=== PATIENT | male | born 1945 | race Caucasian/White ===

== ENCOUNTER → 2016-06-05 | Outpatient (CLI) | payer OTHER ==
[2016-06-05 10:12] LABS: ALANINE AMINOTRANSFERASE 34 U/L (21-72); ALKALINE PHOSPHATASE 81 U/L (38-126); ANION GAP 15 (5-19); ASPARTATE AMINO TRANSFERASE 40 U/L (17-59); BILIRUBIN,TOTAL 0.5 mg/dL (0.2-1.3); BLOOD UREA NITROGEN 24 mg/dL (7-20); CARBON DIOXIDE 26 mmol/L (22-30); CHLORIDE 103 mmol/L (98-107); CHOLESTEROL 127.44 mg/dL (0-200); CREATININE RESULT 1.76 mg/dL (0.52-1.25); Direct HDL 57 mg/dL (>40); GLUCOSE 140 mg/dL (75-110); SODIUM 143.6 mmol/L (137-145); TOTAL PROTEIN 6.8 g/dL (6.3-8.2); TRIGLYCERIDES 137 mg/dL (<150)
[2016-06-05 10:24] LABS: DIRECT LDL 43 mg/dL (<100)
== END ==
LOC: OD 08:55
PROVIDERS: ATTEND Internal Medicine Endocrinology, Diabetes & Metabolism
DX: E11.49 Type 2 diabetes mellitus with other diabetic neurological complication (principal)
CPT/HCPCS: 36415; 80053; 80061

== ENCOUNTER → 2018-04-14 | Outpatient (CLI) | payer MEDICARE ==
--- NOTE | 2018-04-14 11:52 | RADIOLOGY REPORT (SQ) ---
EXAM DESCRIPTION: CHEST PA/LATERAL COMPLETED DATE/TIME: 04/14/2018 11:24 am REASON FOR STUDY: COUGH,ACUTE BRONCHITIS COMPARISON: 01/02/2016 EXAM PARAMETERS: NUMBER OF VIEWS: two views TECHNIQUE: Digital Frontal and Lateral radiographic views of the chest acquired. RADIATION DOSE: NA LIMITATIONS: none FINDINGS: LUNGS AND PLEURA: Minimal bibasilar airspace disease is present, atelectasis favored over pneumonia. No fluffy alveolar infiltrates worrisome for pulmonary edema. No pleural effusion. No pneumothorax. MEDIASTINUM AND HILAR STRUCTURES: No masses or contour abnormalities. HEART AND VASCULAR STRUCTURES: Heart normal size. No evidence for failure. BONES: No acute findings. HARDWARE: None in the chest. OTHER: No other significant finding. IMPRESSION: Minimal bibasilar airspace disease is present atelectasis versus pneumonia TECHNICAL DOCUMENTATION: JOB ID: [id number] [employer]- All Rights Reserved Reading location - IP/workstation name: [email or web address]
[2018-04-14 12:05] LABS: ABSOLUTE LYMPHOCYTES (AUTO) 0.9 10^3/uL (0.5-4.7); ABSOLUTE MONOCYTES (AUTO) 0.7 10^3/uL (0.1-1.4); ABSOLUTE NEUT (AUTO) 3.8 10^3/uL (1.7-8.2); BASOPHILS % (AUTO) 0.2 % (0-2); EOSINOPHILS % (AUTO) 0.1 % (0-6); HEMATOCRIT 43.2 % (37.9-51.0); LYMPHOCYTES % (AUTO) 16.8 % (13-45); MEAN CORPUSCULAR HEMOGLOBIN 32.5 pg (27.0-33.4); MEAN CORPUSCULAR HGB CONC 34.7 g/dL (32.0-36.0); MEAN CORPUSCULAR VOLUME 94 fl (80-97); MONOCYTES % (AUTO) 13.3 % (3-13); PLATELET COUNT 112 10^3/uL (150-450); RED BLOOD COUNT 4.61 10^6/uL (4.35-5.55); RED CELL DISTRIBUTION WIDTH 13.6 % (11.5-14.0); SEGMENTED NEUTROPHILS % (AUTO) 69.6 % (42-78); TOTAL CELLS COUNTED % (AUTO) 100 %; WHITE BLOOD COUNT 5.5 10^3/uL (4.0-10.5)
[2018-04-14 12:23] LABS: ALBUMIN 4.4 g/dL (3.5-5.0); ANION GAP 18 (5-19); BLOOD UREA NITROGEN 17 mg/dL (7-20); CALCIUM 9.5 mg/dL (8.4-10.2); CARBON DIOXIDE 24 mmol/L (22-30); CHLORIDE 98 mmol/L (98-107); GLUCOSE 124 mg/dL (75-110); POTASSIUM 4.6 mmol/L (3.6-5.0); SODIUM 139.6 mmol/L (137-145); TOTAL PROTEIN 7.2 g/dL (6.3-8.2)
[2018-04-14 12:24] LABS: ALANINE AMINOTRANSFERASE 43 U/L (21-72); ALKALINE PHOSPHATASE 98 U/L (38-126); ASPARTATE AMINO TRANSFERASE 65 U/L (17-59); BILIRUBIN,DIRECT 0.3 mg/dL (0.0-0.4); BILIRUBIN,TOTAL 0.8 mg/dL (0.2-1.3)
== END ==
LOC: OD 11:08
PROVIDERS: ATTEND Internal Medicine
DX: J20.9 Acute bronchitis, unspecified (principal); R05 Cough
CPT/HCPCS: 36415; 71046; 80053; 85025

== ENCOUNTER → 2019-11-01 | Outpatient (CLI) | payer MEDICARE ==
[2019-11-01 11:30] VITALS: BP 135/87
--- NOTE | 2019-11-01 11:30 | ER RDC ASSESSMENT REPORT ---
Intake - In the Last 14 days Have you traveled outside [place]?: No Have you been in close contact with someone CONFIRMED: No Worked in Healthcare?: No - Symptoms Subjective Fever([place] feverish): No Chills: No Muscule Aches: No Runny Nose: Yes Sore Throat: Yes Cough (New or worsening chronic cough): Yes Shortness of breath: Yes Nausea or Vomiting: No Headache: No Abdominal Pain: No Diarrhea(3 or more loose stools in last 24 hours): No - Do you have any of the following Chronic lung disease: Asthma or emphysema or COPD: Yes Chronic Lung Disease Comment: History of asthma as a child and seasonal allergies Cystic Fibrosis: No Diabetes: Yes Diabetes Comment: DM type II High Blood Pressure: Yes Cardiovascular Disease: Yes Chronic Kidney Disease: No Chronic Liver Disease: No Chronic blood disorder like Sickle Cell Disease: No Weak immune system due to disease or medication: No Neurologic condition that limits movement: No Developmental delay - Moderate to Severe: No Recent (within past 2 weeks) or current : No Morbid Obesity (>100 pounds over ideal weight): No Obesity Comment: Height 6 feet 0 inches weight 185 pounds Other Comment: History of stents x7 - Objective Temperature: 96.7 F Pulse Rate: 87 Respiratory Rate: 20 Blood Pressure: 135/87 O2 Sat by Pulse Oximetry: 97 Objective: Given above, testing performed: If Testing Performed: Test Specimen Type Sent to General - General Information source: Patient Notes: Patient here at [facility] for COVID testing. Started feeling symptoms 3 weeks ago of a sore throat has had a runny nose cough for a long time states on occasion will have shortness of breath with exertion but reports yesterday walked 5 miles has been feeling like he has fuzz balls in his lungs again has had that for several months and denies muscle aches but reports having occasional cramps in the left leg. Sees Dr. Hatch and has an appointment scheduled in the morning. - Related Data Allergies/Adverse Reactions: No Known Allergies Allergy (Unverified 12/13/13 13:20) Past Medical History - General Information source: Patient - Social History Smoking Status: Former Smoker - Quit years ago - Past Medical History Cardiac Medical History: Reports: Hx Hypertension - CONTROLLED Denies: Hx Heart Attack Pulmonary Medical History: Reports: Hx Asthma - CHILDHOOD Neurological Medical History: Denies: Hx Cerebrovascular Accident, Hx Seizures Endocrine Medical History: Reports: Hx Diabetes Mellitus Type 2 GI Medical History: Reports: Hx Gastroesophageal Reflux Disease. Denies: Hx He patitis, Hx Hiatal Hernia, Hx Ulcer Psychiatric Medical History: Reports: Hx Anxiety Infectious Medical History: Denies: Hx Hepatitis Past Surgical History: Reports: Hx Cardiac Catheterization - 3 STENTS. Denies: Hx Open Heart Surgery, Hx Pacemaker Physical Exam - General General appearance: Appears well, Alert In distress: None Notes: PHYSICAL EXAMINATION: GENERAL: Well-appearing and in no acute distress. HEAD: Atraumatic, normocephalic. EYES: sclera anicteric, conjunctiva are normal. ENT: nares patent. Moist mucous membranes. NECK: Normal range of motion, supple without lymphadenopathy LUNGS: CTAB and equal. No wheezes rales or rhonchi. Resp even and unlabored. Lung sounds clear. HEART: Regular rate and rhythm without murmurs ABDOMEN: Soft, nontender, normal bowel sounds, no guarding. EXTREMITIES: No cyanosis. NEUROLOGICAL: Normal speech. PSYCH: Normal mood, normal affect. SKIN: Warm, Dry, normal turgor, Diagnostic Results Laboratory Results: Patient informed of negative rapid strep and negative rapid flu results. pending strep culture pending COVID testing results. Patient provided instructions regarding COVID to include: As a person under investigation for Covid 19, the [place] department of Health and Human Services, division of public health advises you to adhere to the following guidance until your test results are reported to you. If your test result is positive, you will receive additional information from your provider and your local health department at that time. Remain at home until you are cleared by the health provider or public health authorities. Keep a log of visitors to your home, notify any visitors to your home of your isolation status. If you plan to move to a new address or leave the [facility], notify the local health department in your County. Call your doctor or seek care if you have an urgent medical need. Before seeking medical care, call ahead to get instructions from the provider before arriving at the medical office clinic or hospital. Notify them that you are being tested for the virus that causes Covid 19 so that arrangements can be made, as necessary, to prevent transmission to others in the healthcare setting. Next, notify the local health department in your county. If a medical emergency arises and you need to call 911, inform the first responders that you are being tested for the virus that causes Covid 19. Next, notify the local health department in your county. Patient Education/Counseling Counseling/Education: Patient presents with upper respiratory symptoms worrisome for possible Covid 19. Patient does not have emergency worring symptoms such as difficulty breathing, shortness of breath, chest pain, pressure, confusion or cyanosis. Patient appears suitable for discharge. Patient instructed to follow up with PCP. Dr. Hatch. To ED for persistent or worsening symptoms. Patient's vital signs are stable and patient is nontoxic in appearance. Good return precautions have been discussed with patient, patient verbalized understanding and is agreeable with discharge plan of care at this time. RDC Discharge - Discharge Clinical Impression: COVID - 19 SCREENING Upper respiratory infection Qualifiers: URI type: unspecified URI Qualified Code(s): J06.9 - Acute upper respiratory infection, unspecified Condition: Stable Disposition: Home; Selfcare
[2019-11-01 12:10] LABS: A TYPE INFLUENZA AG NEGATIVE (NEGATIVE); B INFLUENZA AG NEGATIVE (NEGATIVE)
== END ==
LOC: RDC 10:42
PROVIDERS: ATTEND Nurse Practitioner Family
DX: Z20.828 Contact with and (suspected) exposure to other viral communicable diseases (principal)
CPT/HCPCS: 36415; 87070; 87880; 87804; U0003; C9803; 87635; 99201; 99211

== ENCOUNTER → 2019-12-16 | Outpatient (CLI) | payer MEDICARE, BC ==
--- NOTE | 2019-12-16 09:54 | RADIOLOGY REPORT (SQ) ---
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 Images reviewed wi th bone, brain and subdural windows. Additional sagittal and coronal reconstructions were generated. Images stored on PACS. All CT scanners at this facility use dose modulation, iterative reconstruction, and/or weight based d osing when appropriate to reduce radiation dose to as low as reasonably achievable (ALARA). [facility]: Dose Right [facility]: CareDose [facility]: Dose Right [facility]: Teradose 4D [facility]: [employer] RADIATION DOSE: mGy. LIMITATIONS: None. FINDINGS: VENTRICLES: Normal size and contour. CEREBRUM: No masses. No hemorrhage. No midline shift. No evidence for acute infarction. Normal gra y/white matter differentiation. No areas of low density in the white matter. CEREBELLUM: No masses. No hemorrhage. No alteration of density. No evidence for acute infarction. EXTRAAXIAL SPACES: No fluid collections. No masses. ORBITS AND GLOBE: No intra- or extraconal masses. Normal contour of globe without masses. CALVARIUM: No fracture. PARANASAL SINUSES: No fluid or mucosal thickening. SOFT TISSUES: No mass or hematoma. OTHER: No other significant finding. IMPRESSION: NORMAL BRAIN CT WITHOUT CONTRAST. EVIDENCE OF ACUTE STROKE: NO. COMMENT: Quality ID # [id number]: Final reports with documentation of one or more dose reduction techniques (e.g., Automated exposure control, adjustment of the mA and/or kV according to patient size, use of iterative reconstruction technique) TECHNICAL DOCUMENTATION: JOB ID: [id number] 2010 [employer]- All Rights Reserved Reading location - IP/workstation name: [email or web address]
== END ==
LOC: RAD 09:29
PROVIDERS: ATTEND Internal Medicine
DX: G45.9 Transient cerebral ischemic attack, unspecified (principal); M21.372 Foot drop, left foot
CPT/HCPCS: 70450

== ENCOUNTER → 2019-12-16 | Outpatient (CLI) | payer MEDICARE, BC ==
[2019-12-16 11:19] LABS: ABSOLUTE EOSINOPHILS # (AUTO) 0.1 10^3/uL (0.0-0.6); ABSOLUTE LYMPHOCYTES (AUTO) 1.1 10^3/uL (0.5-4.7); ABSOLUTE MONOCYTES (AUTO) 0.5 10^3/uL (0.1-1.4); ABSOLUTE NEUT (AUTO) 2.5 10^3/uL (1.7-8.2); BASOPHILS % (AUTO) 0.5 % (0-2); EOSINOPHILS % (AUTO) 2.3 % (0-6); HEMATOCRIT 45.1 % (37.9-51.0); HEMOGLOBIN 15.2 g/dL (13.5-17.0); LYMPHOCYTES % (AUTO) 25.4 % (13-45); MEAN CORPUSCULAR HEMOGLOBIN 32.4 pg (27.0-33.4); MEAN CORPUSCULAR HGB CONC 33.7 g/dL (32.0-36.0); MEAN CORPUSCULAR VOLUME 96 fl (80-97); MONOCYTES % (AUTO) 12.3 % (3-13); PLATELET COUNT 110 10^3/uL (150-450); RED BLOOD COUNT 4.69 10^6/uL (4.35-5.55); RED CELL DISTRIBUTION WIDTH 13.3 % (11.5-14.0); SEGMENTED NEUTROPHILS % (AUTO) 59.5 % (42-78); TOTAL CELLS COUNTED % (AUTO) 100 %; WHITE BLOOD COUNT 4.2 10^3/uL (4.0-10.5)
[2019-12-16 11:52] LABS: ALBUMIN 4.4 g/dL (3.5-5.0); ALKALINE PHOSPHATASE 95 U/L (38-126); ANION GAP 10 (5-19); ASPARTATE AMINO TRANSFERASE 50 U/L (17-59); BILIRUBIN,TOTAL 0.7 mg/dL (0.2-1.3); BLOOD UREA NITROGEN 17 mg/dL (7-20); CALCIUM 9.9 mg/dL (8.4-10.2); CARBON DIOXIDE 27 mmol/L (22-30); CHLORIDE 104 mmol/L (98-107); GLUCOSE 130 mg/dL (75-110); POTASSIUM 4.6 mmol/L (3.6-5.0); TOTAL PROTEIN 7.1 g/dL (6.3-8.2)
== END ==
LOC: OD 10:24
PROVIDERS: ATTEND Internal Medicine
DX: G45.9 Transient cerebral ischemic attack, unspecified (principal); E11.9 Type 2 diabetes mellitus without complications; I10 Essential (primary) hypertension
CPT/HCPCS: 36415; 80053; 83036; 83735; 85025

== ENCOUNTER → 2019-12-27 | Outpatient (CLI) | payer MEDICARE, BC ==
--- NOTE | 2019-12-27 12:46 | RADIOLOGY REPORT (SQ) ---
EXAM DESCRIPTION: MRI HEAD WITHOUT IMAGES COMPLETED DATE/TIME: 12/27/2019 8:56 am REASON FOR STUDY: L67.9 HAIR COLOR AND HAIR SHAFT ABNORMALITY, UNSPECIFIED L67.9 HAIR COLOR AND SANGITA R SHAFT ABNORMALITY, UNSPECIFIED COMPARISON: MR 09/11/2015 CT head 12/16/2019 TECHNIQUE: Multiplanar imaging includes non-contrasted T1, T2, FLAIR, and diffusion with ADC map seq uences. Images stored on PACS. LIMITATIONS: None. FINDINGS: ANATOMY: No anomalies. Normal vascular flow voids. Pituitary fossa normal. CSF SPACES: Normal in size and contour. No hemorrhage. CEREBRUM: Mild cortical atrophy. Normal white matter signal on FLAIR imaging. No evidence of hemorrh age, mass, or extraaxial fluid collection. POSTERIOR FOSSA: No signal alteration. No hemorrhage. No edema, masses or mass effect. Internal phoebe tory canals, cerebello-pontine angles, mastoids normal. DIFFUSION IMAGING: Negative for acute or sub-acute infarction. ORBITS: No masses. Globes normal. PARANASAL SINUSES: No fluid levels. Mucosa normal. OTHER: No other significant finding. IMPRESSION: Mild involutional changes with no acute intracranial imaging findings. EVIDENCE OF ACUTE STROKE: NO. TECHNICAL DOCUMENTATION: JOB ID: [id number] 2010 [email or web address]- All Rights Reserved Reading location - IP/workstation name: [email or web address]
== END ==
LOC: RAD 08:10
PROVIDERS: ATTEND Internal Medicine
DX: L67.9 Hair color and hair shaft abnormality, unspecified (principal)
CPT/HCPCS: 70551

== ENCOUNTER → 2020-02-15 | Outpatient (CLI) | payer MEDICARE, BC ==
[2020-02-15 12:18] LABS: BLOOD UREA NITROGEN 22 mg/dL (7-20)
== END ==
LOC: OD 10:47
PROVIDERS: ATTEND Internal Medicine
DX: E11.21 Type 2 diabetes mellitus with diabetic nephropathy (principal)
CPT/HCPCS: 36415; 82565; 84520

== ENCOUNTER → 2020-02-17 | Outpatient (CLI) | payer MEDICARE, BC ==
--- NOTE | 2020-02-17 10:49 | RADIOLOGY REPORT (SQ) ---
EXAM DESCRIPTION: CT SOFT TISSUE NECK COMBO IMAGES COMPLETED DATE/TIME: 02/17/2020 8:37 am REASON FOR STUDY: R59.0 LOCALIZED ENLARGED LYMPH NODES R59.0 LOCALIZED ENLARGED LYMPH NODES COMPARISON: None. TECHNIQUE: Pre and post IV contrasted scanning from skull base through lung apices with review of jeremi ne, soft tissue and lung windows. Reconstructed coronal and sagittal MPR images reviewed. All image s stored on PACS. All CT scanners at this facility use dose modulation, iterative reconstruction, and/or weight based d osing when appropriate to reduce radiation dose to as low as reasonably achievable (ALARA). [facility]: Dose Right [facility]: CareDose [facility]: Dose Right [facility]: Teradose 4D [facility]: [employer] CONTRAST TYPE AND DOSE: contrast/concentration: Isovue 350.00 mmol/ml; Total Contrast Delivered: 75. 0 ml; Total Saline Delivered: 55.0 ml RENAL FUNCTION: Creatinine 0.79 RADIATION DOSE: 42 mGy LIMITATIONS: None. FINDINGS: SKULL BASE: Inferior brain parenchyma in the field of view unremarkable MAJOR SALIVARY GLANDS: No solid or cystic masses. No inflammatory changes. LYMPHADENOPATHY: No adenopathy. MUCOSAL MASSES OR ASYMMETRY: No mucosal masses or asymmetry. LARYNX/CORDS: No abnormal findings. VASCULAR STRUCTURES: The major vessels are patent. There is calcific plaque along the distal right c ommon carotid artery causing less than 50% diameter narrowing. There is calcific plaque at both carotid bifurcations less than 50% diameter proximal ICA stenosis. Codominant vertebral arteries LUNG APICES: Obstructive lung disease BONES: Multilevel degenerative disc changes. No high-grade central stenosis Moderate right C2-3 foraminal narrowing. High-grade left C3-4 foraminal narrowing High-grade right, mild left C5-6 foraminal narrowing THYROID: Normal size. No masses. PARANASAL SINUSES: Clear. OTHER: No other significant finding. IMPRESSION: NO SIGNIFICANT FINDING IN THE SOFT TISSUES OF THE NECK. TECHNICAL DOCUMENTATION: JOB ID: [id number] Quality ID # [id number]: Final reports with documentation of one or more dose reduction techniques (e.g., Au tomated exposure control, adjustment of the mA and/or kV according to patient size, use of iterative reconstruction technique) 2010 [employer]- All Rights Reserved Reading location - IP/workstation name: [email or web address]
== END ==
LOC: RAD 07:59
PROVIDERS: ATTEND Internal Medicine
DX: R59.0 Localized enlarged lymph nodes (principal); J44.9 Chronic obstructive pulmonary disease, unspecified; M50.322 Other cervical disc degeneration at C5-C6 level
CPT/HCPCS: 70492